=== PATIENT | female | born 1945 | race Caucasian/White ===

== ENCOUNTER 2016-10-26 13:43 | Inpatient (IN) | payer OTHER ==
[~2016-10-26] VITALS: Ht 154.9 cm; Wt 51.0 kg
[~2016-10-26 13:43] MED LIST: AMARYL1 MG PO; AMARYL2 MG PO; ASPIRIN81 M2 PO; LASIX20 MG PO; LEVAQUIN500 MG PO; LIPITOR40 MG PO; LYRICA75 MG PO; MOBIC15 MG PO; MOBIC7.5 MG PO; MYSOLINE50 MG PO; OMEGA-31000 M1 PO; PLAVIX75 MG PO; PREDNISONE10 MG PO; PROVENTIL HFA6.7 GM IH; VICTOZA 2-0.6 MG/0.1 SC; ZESTRIL2.5 MG PO; ZOLOFT100 MG PO; ZOLOFT50 MG PO
[2016-10-26 14:54] LABS: ADD MIUA? YES; BILIRUBIN NEGATIVE; BLOOD NEGATIVE; GLUCOSE (STRIP) NEGATIVE; KETONES 5; LEUKOCYTES NEGATIVE; NITRITE NEGATIVE; PROTEIN (STRIP) NEGATIVE; SPECIFIC GRAVITY 1.018 (1.000-1.030)
[2016-10-26 14:57] LABS: HEMATOCRIT 34.6 % (36.0-46.0); MCH 27.5 PG (29.0-34.0); MCHC 32.4 G/DL (30.0-36.0); MEAN PLAT.VOLUME 12.3 uM^3 (9.5-12.4); PLATELET COUNT 160 K/uL (156-360); RBC DIS.WIDTH-CV 16.5 % (11.8-14.6); RED BLOOD COUNT 4.07 M/uL (3.80-5.20); WHITE BLOOD COUNT 7.5 K/uL (4.1-10.2)
[2016-10-26 14:59] LABS: BASOPHIL COUNT 0.1 K/uL (0-0.1); EOSINOPHIL (%) 0.8 % (0-5); EOSINOPHIL COUNT 0.1 K/uL (0-0.3); IMMATURE GRANULOCYTE (%) 0.3 % (0.0-0.7); IMMATURE GRANULOCYTE COUNT 0.2 K/uL; LYMPHOCYTE COUNT 1.3 K/uL (1.0-2.8); MONOCYTE (%) 10.3 % (3-12); MONOCYTE COUNT 0.8 K/uL (0-0.8); NEUTROPHIL (%) 71.1 % (45-76); NEUTROPHIL COUNT 5.3 K/uL (1.8-6.4)
[2016-10-26 15:03] LABS: BACTERIA NONE SEEN /HPF; COLOR DK YELLOW ((YELLOW)); CRYSTALS PRESENT; EPITHELIAL CELLS RARE /HPF; MUCUS TRACE /LPF; RED BLOOD CELLS 0-5 /HPF (0-5); UCUL ADDED? NO; WHITE BLOOD CELLS 0-5 /HPF (0-5)
[2016-10-26 15:04] LABS: HYALINE CASTS 20-30 /LPF
[2016-10-26 15:16] LABS: CHLORIDE 110 mEq/L (99-109); POTASSIUM 4.5 mEq/L (3.7-5.4); SODIUM 142 mEq/L (136-147)
[2016-10-26 15:19] LABS: GLUCOSE 126 mg/dL (70-99)
[2016-10-26 15:20] LABS: ANION GAP 13 MEQ/L (2-14)
[2016-10-26 15:21] LABS: TOTAL BILIRUBIN 1.1 mg/dL (0.0-1.0)
[2016-10-26 15:22] LABS: ALKALINE PHOSPHATASE 128 IU/L (3-129); GFR ESTIMATE (CALCULATED) 36 mL/min/; TROP-I INTERPRETATION NEGATIVE; TROPONIN-I 0.06 ng/mL (0.0-0.30)
[2016-10-26 15:23] LABS: UREA NITROGEN (BUN) 32 mg/dL (9-23)
[2016-10-26 18:39] VITALS: BP 152/68
[2016-10-26 19:20] VITALS: BP 165/73
[2016-10-26] MEDS ORDERED: LISINOPRIL2.5 MG PO (21:40)
[2016-10-26] MEDS ORDERED: CLOPIDOGREL75 MG PO (21:41)
[2016-10-26] MEDS ORDERED: LASIX20 MG PO (21:41)
[2016-10-26] MEDS ORDERED: ZOLOFT100 MG PO (21:42)
[2016-10-26] MEDS ORDERED: LYRICA75 MG PO (21:42)
[2016-10-26] MEDS ORDERED: LIPITOR40 MG PO (21:43)
[2016-10-26] MEDS ORDERED: MYSOLINE50 MG PO (21:43)
[2016-10-26] MEDS ORDERED: OMEGA 3-6-9 CO1 EACH PO (21:44)
[2016-10-26] MEDS ORDERED: VICTOZA 2-0.6 MG/0.1 SC (21:45)
[2016-10-26] MEDS ORDERED: TRAMADOL HCL50 MG PO (21:46)
[2016-10-26] MEDS ORDERED: ASPIR 8181 M1 PO (21:46)
[2016-10-26 22:14] VITALS: BP 150/76
[2016-10-26 23:08] VITALS: BP 150/72
[2016-10-27 03:04] VITALS: BP 149/67
[2016-10-27 06:21] LABS: EOSINOPHIL (%) 0 % (0-5); HEMATOCRIT 32.9 % (36.0-46.0); IMMATURE GRANULOCYTE (%) 0.3 % (0.0-0.7); LYMPHOCYTE COUNT 0.6 K/uL (1.0-2.8); MCH 27.2 PG (29.0-34.0); MCHC 32.2 G/DL (30.0-36.0); MCV 84.6 FL (83-99); MEAN PLAT.VOLUME 12.8 uM^3 (9.5-12.4); MONOCYTE COUNT 0.3 K/uL (0-0.8); NEUTROPHIL (%) 78.5 % (45-76); NEUTROPHIL COUNT 3.1 K/uL (1.8-6.4); PLATELET COUNT 153 K/uL (156-360); RBC DIS.WIDTH-CV 16.6 % (11.8-14.6); RBC DIS.WIDTH-SD 50.4 % (39-53); RED BLOOD COUNT 3.89 M/uL (3.80-5.20)
[2016-10-27 06:22] LABS: WHITE BLOOD COUNT 3.9 K/uL (4.1-10.2)
[2016-10-27 06:29] LABS: ANION GAP 11 MEQ/L (2-14); CHLORIDE 108 MEQ/L (99-109); GFR ESTIMATE (CALCULATED) 39 mL/min/; GLUCOSE 184 mg/dL (70-99); POTASSIUM 4.4 MEQ/L (3.7-5.4); SAMPLE HEMOLYSIS CHECK 0; SAMPLE ICTERIC CHECK 0; SAMPLE LIPEMIA CHECK 0; SODIUM 137 MEQ/L (136-147); UREA NITROGEN (BUN) 37 mg/dL (9-23)
[2016-10-27 07:57] VITALS: BP 115/58
[2016-10-27 11:52] VITALS: BP 118/60
[2016-10-27 16:15] VITALS: BP 140/59
[2016-10-27 20:25] VITALS: BP 124/69
[2016-10-28 00:14] VITALS: BP 153/64
[2016-10-28 04:40] VITALS: BP 128/61
[2016-10-28 07:37] VITALS: BP 128/101
[2016-10-28 12:00] VITALS: BP 117/56
[2016-10-28 15:37] VITALS: BP 104/53
[2016-10-28 20:00] VITALS: BP 140/65
[2016-10-29] VITALS (7 sets, daily range): BP systolic 117–159; BP diastolic 55–75
[2016-10-29 06:50] LABS: EOSINOPHIL (%) 0 % (0-5); HEMATOCRIT 31.8 % (36.0-46.0); IMMATURE GRANULOCYTE (%) 0.1 % (0.0-0.7); LYMPHOCYTE COUNT 0.4 K/uL (1.0-2.8); MCH 27.3 PG (29.0-34.0); MCHC 32.7 G/DL (30.0-36.0); MCV 83.5 FL (83-99); MONOCYTE (%) 4.2 % (3-12); MONOCYTE COUNT 0.4 K/uL (0-0.8); NEUTROPHIL (%) 90.4 % (45-76); NEUTROPHIL COUNT 7.5 K/uL (1.8-6.4); RBC DIS.WIDTH-CV 16.8 % (11.8-14.6); RBC DIS.WIDTH-SD 50.4 % (39-53); RED BLOOD COUNT 3.81 M/uL (3.80-5.20)
[2016-10-29 06:55] LABS: WHITE BLOOD COUNT 8.3 K/uL (4.1-10.2)
[2016-10-29 07:01] LABS: ANION GAP 9 MEQ/L (2-14); CHLORIDE 107 MEQ/L (99-109); GFR ESTIMATE (CALCULATED) 39 mL/min/; SAMPLE HEMOLYSIS CHECK 0; SAMPLE ICTERIC CHECK 0; SAMPLE LIPEMIA CHECK 0; SODIUM 134 MEQ/L (136-147); UREA NITROGEN (BUN) 45 mg/dL (9-23)
[2016-10-29 07:04] LABS: GLUCOSE 301 mg/dL (70-99)
[2016-10-29 07:49] LABS: MEAN PLAT.VOLUME 11.8 uM^3 (9.5-12.4); PLAT.SUFFICIENCY DECREASED; USER ID TLW
[2016-10-29 07:57] LABS: PLATELET COUNT 103 K/uL (156-360)
[2016-10-29 12:38] LABS: POINT-OF-CARE METER ID UU14149396; POINT-OF-CARE USER ID 606021404
[2016-10-29 17:54] LABS: POINT-OF-CARE METER ID UU14149396; POINT-OF-CARE USER ID 606021404
[2016-10-29 21:33] LABS: POINT-OF-CARE METER ID UU14149396
[2016-10-30] VITALS (8 sets, daily range): BP systolic 107–157; BP diastolic 53–74
[2016-10-30 07:40] LABS: ANION GAP 8 MEQ/L (2-14); CHLORIDE 108 MEQ/L (99-109); GFR ESTIMATE (CALCULATED) 58 mL/min/; GLUCOSE 232 mg/dL (70-99); SAMPLE HEMOLYSIS CHECK 0; SAMPLE ICTERIC CHECK 0; SAMPLE LIPEMIA CHECK 0; SODIUM 136 MEQ/L (136-147); UREA NITROGEN (BUN) 37 mg/dL (9-23)
[2016-10-30 08:50] LABS: EOSINOPHIL (%) 0 % (0-5); HEMATOCRIT 34.4 % (36.0-46.0); IMMATURE GRANULOCYTE (%) 0.2 % (0.0-0.7); LYMPHOCYTE COUNT 0.6 K/uL (1.0-2.8); MCH 27.3 PG (29.0-34.0); MCHC 32.6 G/DL (30.0-36.0); MCV 83.7 FL (83-99); MONOCYTE (%) 5.5 % (3-12); MONOCYTE COUNT 0.5 K/uL (0-0.8); NEUTROPHIL (%) 87.6 % (45-76); NEUTROPHIL COUNT 7.7 K/uL (1.8-6.4); PLATELET COUNT 101 K/uL (156-360); RBC DIS.WIDTH-SD 51.2 % (39-53); RED BLOOD COUNT 4.11 M/uL (3.80-5.20); WHITE BLOOD COUNT 8.8 K/uL (4.1-10.2)
[2016-10-30 09:06] LABS: POINT-OF-CARE METER ID UU14149396
[2016-10-30] MEDS ORDERED: VENTOLIN HFA18 GM IH (11:35)
[2016-10-30 12:30] LABS: POINT-OF-CARE METER ID UU14149396
[2016-10-30 16:54] LABS: POINT-OF-CARE METER ID UU14149396
[2016-10-30 22:21] LABS: POINT-OF-CARE METER ID UU14149396; POINT-OF-CARE USER ID 608261316
[2016-10-31 03:35] VITALS: BP 132/66
[2016-10-31 07:59] VITALS: BP 120/56
[2016-10-31 08:37] LABS: POINT-OF-CARE METER ID UU13113807
[2016-10-31 12:11] VITALS: BP 118/56
[2016-10-31 12:59] LABS: POINT-OF-CARE METER ID UU13113807
[2016-10-31 16:40] VITALS: BP 132/67
[2016-10-31 17:36] LABS: POINT-OF-CARE METER ID UU13113807
[2016-10-31 20:00] VITALS: BP 136/58
[2016-10-31 21:26] LABS: POINT-OF-CARE METER ID UU13113807
[2016-10-31 23:51] VITALS: BP 121/56
[2016-11-01 07:00] VITALS: BP 149/64
[2016-11-01 07:33] LABS: ANION GAP 7 MEQ/L (2-14); CHLORIDE 106 MEQ/L (99-109); GFR ESTIMATE (CALCULATED) 58 mL/min/; GLUCOSE 116 mg/dL (70-99); POTASSIUM 4.8 MEQ/L (3.7-5.4); SAMPLE HEMOLYSIS CHECK 0; SAMPLE ICTERIC CHECK 0; SAMPLE LIPEMIA CHECK 0; SODIUM 135 MEQ/L (136-147); UREA NITROGEN (BUN) 33 mg/dL (9-23)
[2016-11-01 07:36] LABS: EOSINOPHIL (%) 1.3 % (0-5); EOSINOPHIL COUNT 0.2 K/uL (0-0.3); HEMATOCRIT 32.7 % (36.0-46.0); IMMATURE GRANULOCYTE (%) 0.2 % (0.0-0.7); LYMPHOCYTE COUNT 1.5 K/uL (1.0-2.8); MCH 27.2 PG (29.0-34.0); MCHC 32.4 G/DL (30.0-36.0); MCV 84.1 FL (83-99); MONOCYTE (%) 8.6 % (3-12); NEUTROPHIL (%) 76.6 % (45-76); NEUTROPHIL COUNT 8.8 K/uL (1.8-6.4); RBC DIS.WIDTH-CV 17.2 % (11.8-14.6); RBC DIS.WIDTH-SD 51.9 % (39-53); RED BLOOD COUNT 3.89 M/uL (3.80-5.20)
[2016-11-01 07:42] LABS: POINT-OF-CARE METER ID UU14149398
[2016-11-01 07:55] LABS: WHITE BLOOD COUNT 11.5 K/uL (4.1-10.2)
[2016-11-01 08:34] LABS: MEAN PLAT.VOLUME 12.5 uM^3 (9.5-12.4); PLAT.SUFFICIENCY DECREASED; PLATELET COUNT 96 K/uL (156-360); USER ID TLW
[2016-11-01 11:02] VITALS: BP 116/58
[2016-11-01 11:10] LABS: POINT-OF-CARE METER ID UU14149398
[2016-11-01 15:06] LABS: POINT-OF-CARE METER ID UU14149398
[2016-11-01 15:58] VITALS: BP 131/60
[2016-11-01 17:03] LABS: POINT-OF-CARE METER ID UU14149398
[2016-11-01 19:29] VITALS: BP 125/72
[2016-11-01 21:18] LABS: POINT-OF-CARE METER ID UU14149398
[2016-11-01 23:42] VITALS: BP 125/61
[2016-11-02 03:34] VITALS: BP 153/68
[2016-11-02 07:46] VITALS: BP 139/64
[2016-11-02 07:55] LABS: POINT-OF-CARE METER ID UU14149398
[2016-11-02 10:46] VITALS: BP 128/56
[2016-11-02 10:57] LABS: POINT-OF-CARE METER ID UU14149398
[2016-11-02] MEDS ORDERED: DUONEB 2.5-0.5 M3 ML AEROSOL (12:11)
[2016-11-02] MEDS ORDERED: LOVENOX40 MG/0.4 SC (12:11)
[2016-11-02] MEDS ORDERED: TYLENOL REGULA325 MG PO (12:12)
[2016-11-02] MEDS ORDERED: CEFTIN500 MG PO (12:13)
[2016-11-02] MEDS ORDERED: TRAMADOL HCL50 MG PO (12:15)
[2016-11-02] MEDS ORDERED: LYRICA75 MG PO (12:15)
[2016-11-02] MEDS ORDERED: PREDNISONE10 MG PO (12:17)
[2016-11-02 16:15] LABS: POINT-OF-CARE METER ID UU14149398
== END 2016-11-02 16:19 | DRG 190 ==
LOC: EME 13:43 → EDOF 15:36 → 4SOUTH 15:36
PROVIDERS: Emergency Medicine; Family Medicine
DX: J44.1 Chronic obstructive pulmonary disease with (acute) exacerbation (principal); J18.9 Pneumonia, unspecified organism; F05 Delirium due to known physiological condition; F33.9 Major depressive disorder, recurrent, unspecified; N28.9 Disorder of kidney and ureter, unspecified; Z91.81 History of falling; I50.9 Heart failure, unspecified; I25.10 Atherosclerotic heart disease of native coronary artery without angina pectoris; E78.5 Hyperlipidemia, unspecified; E11.40 Type 2 diabetes mellitus with diabetic neuropathy, unspecified; Z95.5 Presence of coronary angioplasty implant and graft; Z86.73 Personal history of transient ischemic attack (TIA), and cerebral infarction without residual deficits; F17.210 Nicotine dependence, cigarettes, uncomplicated; Z88.0 Allergy status to penicillin; Z91.040 Latex allergy status; M62.81 Muscle weakness (generalized); F41.9 Anxiety disorder, unspecified; I10 Essential (primary) hypertension; R09.02 Hypoxemia; D64.9 Anemia, unspecified; D69.6 Thrombocytopenia, unspecified
CPT/HCPCS: 70450; 71010; 80048; 80053; 81003; 82948; 83605; 84484; 85025; 87040; 93005; 94640; 94640 76; 94760; 94799; 97530 GO; 97530 GP; 99202; 99281; 99285; J0456; J0696; J1100; J1650; J1815; J2930; J7030; J7050; J7512

== ENCOUNTER 2016-11-21 01:50 | Inpatient (IN) | payer OTHER ==
[~2016-11-21] VITALS: Ht 154.9 cm; Wt 60.1 kg
[~2016-11-21 01:50] MED LIST changes: +ASPIR 8181 M1 PO; +CEFTIN500 MG PO; +CLOPIDOGREL75 MG PO; +DUONEB 2.5-0.5 M3 ML AEROSOL; +LISINOPRIL2.5 MG PO; +LOVENOX40 MG/0.4 SC; +OMEGA 3-6-9 CO1 EACH PO; +TRAMADOL HCL50 MG PO; +TYLENOL REGULA325 MG PO; +VENTOLIN HFA18 GM IH
[2016-11-21 03:12] LABS: CHLORIDE 108 mEq/L (99-109); POTASSIUM 3.9 mEq/L (3.7-5.4); SODIUM 147 mEq/L (136-147)
[2016-11-21 03:15] LABS: GLUCOSE 149 mg/dL (70-99); INTER. NORMALIZED RATIO 1.4; PROTHROMBIN TIME 14.9 (9.2-11.2); PTT 29.4 (25-32)
[2016-11-21 03:16] LABS: ANION GAP 11 MEQ/L (2-14)
[2016-11-21 03:17] LABS: TOTAL BILIRUBIN 0.8 mg/dL (0.0-1.0)
[2016-11-21 03:18] LABS: ALKALINE PHOSPHATASE 95 IU/L (3-129); GFR ESTIMATE (CALCULATED) 52 mL/min/
[2016-11-21 03:19] LABS: UREA NITROGEN (BUN) 29 mg/dL (9-23)
[2016-11-21 03:21] LABS: WHITE BLOOD COUNT 7.4 K/uL (4.1-10.2)
[2016-11-21 03:22] LABS: HEMATOCRIT 27.5 % (36.0-46.0); LIPASE 9 U/L (1.0-51.0); MCH 26.4 PG (29.0-34.0); MCHC 30.9 G/DL (30.0-36.0); MCV 85.4 FL (83-99); RBC DIS.WIDTH-CV 18.2 % (11.8-14.6); RED BLOOD COUNT 3.22 M/uL (3.80-5.20); TROP-I INTERPRETATION NEGATIVE; TROPONIN-I 0.18 ng/mL (0.0-0.30)
[2016-11-21 03:35] LABS: ADD MIUA? YES; BILIRUBIN NEGATIVE; BLOOD NEGATIVE; COLOR YELLOW ((YELLOW)); GLUCOSE (STRIP) NEGATIVE; KETONES NEGATIVE; LEUKOCYTES NEGATIVE; NITRITE NEGATIVE; PROTEIN (STRIP) NEGATIVE; SPECIFIC GRAVITY 1.014 (1.000-1.030); UROBILINOGEN 0.2 MG/DL (0.2-1.0)
[2016-11-21 03:49] LABS: RBC DIS.WIDTH-SD 54.6 % (39-53)
[2016-11-21 03:51] LABS: BACTERIA NONE SEEN /HPF; EPITHELIAL CELLS 1+ /HPF; MUCUS TRACE /LPF; RED BLOOD CELLS NONE SEEN /HPF (0-5); UCUL ADDED? NO; WHITE BLOOD CELLS 0-5 /HPF (0-5)
[2016-11-21 04:39] LABS: MEAN PLAT.VOLUME 13.1 uM^3 (9.5-12.4); PLATELET COUNT 104 K/uL (156-360)
[2016-11-21] MEDS ORDERED: LASIX40 MG PO (06:59)
[2016-11-21] MEDS ORDERED: FERROUS SULFAT325 MG PO (07:02)
[2016-11-21] MEDS ORDERED: TYLENOL ARTHRI650 MG PO (07:04)
[2016-11-21 11:34] VITALS: BP 125/58
[2016-11-21 15:22] LABS: IRON 29 MCG/DL (35-150)
[2016-11-21 15:27] LABS: HEMATOCRIT 30.8 % (36.0-46.0); MCH 25.9 PG (29.0-34.0); MCHC 29.9 G/DL (30.0-36.0); MCV 86.8 FL (83-99); PLATELET COUNT 104 K/uL (156-360); RBC DIS.WIDTH-CV 18.4 % (11.8-14.6); RBC DIS.WIDTH-SD 58.3 % (39-53); RED BLOOD COUNT 3.55 M/uL (3.80-5.20); WHITE BLOOD COUNT 8.4 K/uL (4.1-10.2)
[2016-11-21 16:00] LABS: FERRITIN 48 NG/ML (10-291)
[2016-11-21 16:25] VITALS: BP 132/61
[2016-11-21 18:41] VITALS: BP 97/58
[2016-11-21 22:18] VITALS: BP 103/53
[2016-11-22] VITALS (16 sets, daily range): BP systolic 103–129; BP diastolic 32–65
[2016-11-22 03:25] LABS: HEMATOCRIT 26.9 % (36.0-46.0); MCH 25.8 PG (29.0-34.0); MCHC 30.1 G/DL (30.0-36.0); MCV 85.7 FL (83-99); PLATELET COUNT 87 K/uL (156-360); RBC DIS.WIDTH-CV 18.5 % (11.8-14.6); RBC DIS.WIDTH-SD 57.4 % (39-53); RED BLOOD COUNT 3.14 M/uL (3.80-5.20); WHITE BLOOD COUNT 7.8 K/uL (4.1-10.2)
[2016-11-22 07:09] LABS: HEMATOCRIT 25.6 % (36.0-46.0); MCH 25.8 PG (29.0-34.0); MCHC 30.1 G/DL (30.0-36.0); MCV 85.9 FL (83-99); MEAN PLAT.VOLUME 13.6 uM^3 (9.5-12.4); PLATELET COUNT 93 K/uL (156-360); RBC DIS.WIDTH-CV 18.3 % (11.8-14.6); RBC DIS.WIDTH-SD 56.9 % (39-53); RED BLOOD COUNT 2.98 M/uL (3.80-5.20); WHITE BLOOD COUNT 6.3 K/uL (4.1-10.2)
[2016-11-22 07:32] LABS: ALKALINE PHOSPHATASE 73 IU/L (3-129); ANION GAP 6 MEQ/L (2-14); CHLORIDE 112 MEQ/L (99-109); GFR ESTIMATE (CALCULATED) 52 mL/min/; GLUCOSE 179 mg/dL (70-99); POTASSIUM 3.5 MEQ/L (3.7-5.4); SAMPLE HEMOLYSIS CHECK 0; SAMPLE ICTERIC CHECK 0; SAMPLE LIPEMIA CHECK 0; SODIUM 145 MEQ/L (136-147); TOTAL BILIRUBIN 0.8 MG/DL (0.0-1.0); UREA NITROGEN (BUN) 27 mg/dL (9-23)
[2016-11-22 10:48] LABS: TYPE OF FLUID PLEURAL
[2016-11-22 11:43] LABS: BODY FLUID PROTEIN < 3.0 G/DL
[2016-11-22 12:26] LABS: BODY FLUID RBC'S 331 /MM^3 (0-100); BODY FLUID WBC'S 128 /MM^3 (0-500); RED CELL DILUTION 1; WBC DILUTION 1; WHITE CELL RAW COUNT 230
[2016-11-22 12:52] LABS: BODY FLUID EOSINOPHILS 0 % (0-25); MONO RAW COUNT 23; MONONUCLEAR WBC'S 23 %; POLY RAW COUNT 77; POLYNUCLEAR WBC'S 77 % (0-25)
[2016-11-22 17:03] LABS: HEMATOCRIT 34.7 % (36.0-46.0); MCH 25.9 PG (29.0-34.0); MCV 86.5 FL (83-99); MEAN PLAT.VOLUME 12.7 uM^3 (9.5-12.4); PLATELET COUNT 93 K/uL (156-360); RBC DIS.WIDTH-SD 55.5 % (39-53)
[2016-11-22 17:19] LABS: RED BLOOD COUNT 4.01 M/uL (3.80-5.20); WHITE BLOOD COUNT 11.3 K/uL (4.1-10.2)
[2016-11-23 02:50] VITALS: BP 106/52
[2016-11-23 03:14] LABS: HEMATOCRIT 29.8 % (36.0-46.0); MCH 26.1 PG (29.0-34.0); MCHC 30.9 G/DL (30.0-36.0); MCV 84.4 FL (83-99); PLATELET COUNT 75 K/uL (156-360); RBC DIS.WIDTH-CV 18.6 % (11.8-14.6); RBC DIS.WIDTH-SD 55.2 % (39-53); RED BLOOD COUNT 3.53 M/uL (3.80-5.20)
[2016-11-23 03:15] LABS: WHITE BLOOD COUNT 6.2 K/uL (4.1-10.2)
[2016-11-23 07:40] LABS: HEMATOCRIT 29.4 % (36.0-46.0); MCH 25.8 PG (29.0-34.0); MCHC 29.3 G/DL (30.0-36.0); MCV 88.3 FL (83-99); RBC DIS.WIDTH-CV 18.9 % (11.8-14.6); RBC DIS.WIDTH-SD 59.8 % (39-53); RED BLOOD COUNT 3.33 M/uL (3.80-5.20); WHITE BLOOD COUNT 5.8 K/uL (4.1-10.2)
[2016-11-23 07:43] VITALS: BP 123/60
[2016-11-23 07:53] LABS: ALKALINE PHOSPHATASE 67 IU/L (3-129); CHLORIDE 112 MEQ/L (99-109); GFR ESTIMATE (CALCULATED) 58 mL/min/; GLUCOSE 183 mg/dL (70-99); POTASSIUM 3.4 MEQ/L (3.7-5.4); SAMPLE HEMOLYSIS CHECK 0; SAMPLE ICTERIC CHECK 0; SAMPLE LIPEMIA CHECK 0; SODIUM 144 MEQ/L (136-147); TOTAL BILIRUBIN 0.9 MG/DL (0.0-1.0); UREA NITROGEN (BUN) 25 mg/dL (9-23)
[2016-11-23 07:54] LABS: ANION GAP 8 MEQ/L (2-14)
[2016-11-23 11:32] VITALS: BP 146/62
[2016-11-23 15:43] VITALS: BP 126/64
[2016-11-23 19:17] VITALS: BP 125/66
[2016-11-23 22:58] VITALS: BP 113/59
[2016-11-24 03:19] VITALS: BP 118/58
[2016-11-24 07:21] LABS: ALKALINE PHOSPHATASE 70 IU/L (3-129); ANION GAP 7 MEQ/L (2-14); CHLORIDE 110 MEQ/L (99-109); GFR ESTIMATE (CALCULATED) 58 mL/min/; GLUCOSE 142 mg/dL (70-99); POTASSIUM 3.6 MEQ/L (3.7-5.4); SAMPLE HEMOLYSIS CHECK 0; SAMPLE ICTERIC CHECK 0; SAMPLE LIPEMIA CHECK 0; SODIUM 143 MEQ/L (136-147); TOTAL BILIRUBIN 0.9 MG/DL (0.0-1.0); UREA NITROGEN (BUN) 24 mg/dL (9-23)
[2016-11-24 07:47] LABS: HEMATOCRIT 32.2 % (36.0-46.0); MCH 26.1 PG (29.0-34.0); MCHC 30.1 G/DL (30.0-36.0); MCV 86.8 FL (83-99); RBC DIS.WIDTH-CV 18.6 % (11.8-14.6); RBC DIS.WIDTH-SD 57.1 % (39-53); RED BLOOD COUNT 3.71 M/uL (3.80-5.20); WHITE BLOOD COUNT 6.4 K/uL (4.1-10.2)
[2016-11-24 08:53] VITALS: BP 128/61
[2016-11-24 10:20] LABS: EOSINOPHIL (%) 2.2 % (0-5); EOSINOPHIL COUNT 0.1 K/uL (0-0.3); IMMATURE GRANULOCYTE (%) 0.5 % (0.0-0.7); INSTRUMENT ABS NEUTROPHIL CT 4.7 K/uL; LYMPHOCYTE COUNT 0.9 K/uL (1.0-2.8); MONOCYTE (%) 8.6 % (3-12); MONOCYTE COUNT 0.6 K/uL (0-0.8); NEUTROPHIL (%) 73.9 % (45-76); NEUTROPHIL COUNT 4.7 K/uL (1.8-6.4); PLAT.SUFFICIENCY DECREASED
[2016-11-24 16:52] VITALS: BP 142/55
[2016-11-24 20:04] VITALS: BP 131/55
[2016-11-25] VITALS (7 sets, daily range): BP systolic 101–115; BP diastolic 51–62
[2016-11-25 07:18] LABS: HEMATOCRIT 28.1 % (36.0-46.0); MCH 26.2 PG (29.0-34.0); MCHC 30.6 G/DL (30.0-36.0); MCV 85.7 FL (83-99); RBC DIS.WIDTH-CV 18.5 % (11.8-14.6); RBC DIS.WIDTH-SD 56.1 % (39-53); RED BLOOD COUNT 3.28 M/uL (3.80-5.20); WHITE BLOOD COUNT 5.9 K/uL (4.1-10.2)
[2016-11-25 07:27] LABS: ALKALINE PHOSPHATASE 69 IU/L (3-129); ANION GAP 8 MEQ/L (2-14); CHLORIDE 112 MEQ/L (99-109); GFR ESTIMATE (CALCULATED) > 59 mL/min/; GLUCOSE 123 mg/dL (70-99); POTASSIUM 3.6 MEQ/L (3.7-5.4); SAMPLE HEMOLYSIS CHECK 0; SAMPLE ICTERIC CHECK 0; SAMPLE LIPEMIA CHECK 0; SODIUM 144 MEQ/L (136-147); TOTAL BILIRUBIN 0.9 MG/DL (0.0-1.0); UREA NITROGEN (BUN) 22 mg/dL (9-23)
[2016-11-25 09:06] LABS: PLATELET COUNT 59 K/uL (156-360)
[2016-11-26 02:51] VITALS: BP 112/53
[2016-11-26 06:56] VITALS: BP 123/57
[2016-11-26 07:36] LABS: ANION GAP 5 MEQ/L (2-14); CHLORIDE 112 MEQ/L (99-109); GFR ESTIMATE (CALCULATED) > 59 mL/min/; GLUCOSE 111 mg/dL (70-99); POTASSIUM 3.9 MEQ/L (3.7-5.4); SAMPLE HEMOLYSIS CHECK 0; SAMPLE ICTERIC CHECK 0; SAMPLE LIPEMIA CHECK 0; SODIUM 143 MEQ/L (136-147); UREA NITROGEN (BUN) 20 mg/dL (9-23)
[2016-11-26 07:39] LABS: HEMATOCRIT 30.6 % (36.0-46.0); MCH 26.1 PG (29.0-34.0); MCHC 29.7 G/DL (30.0-36.0); MCV 87.7 FL (83-99); MEAN PLAT.VOLUME 13.5 uM^3 (9.5-12.4); PLATELET COUNT 72 K/uL (156-360); RBC DIS.WIDTH-CV 19.3 % (11.8-14.6); RED BLOOD COUNT 3.49 M/uL (3.80-5.20); WHITE BLOOD COUNT 5.9 K/uL (4.1-10.2)
[2016-11-26 08:13] LABS: EOSINOPHIL (%) 1.9 % (0-5); EOSINOPHIL COUNT 0.1 K/uL (0-0.3); IMMATURE GRANULOCYTE (%) 0.2 % (0.0-0.7); INSTRUMENT ABS NEUTROPHIL CT 4.3 K/uL; LYMPHOCYTE COUNT 0.9 K/uL (1.0-2.8); MONOCYTE (%) 8.8 % (3-12); MONOCYTE COUNT 0.5 K/uL (0-0.8); NEUTROPHIL (%) 73.3 % (45-76); NEUTROPHIL COUNT 4.3 K/uL (1.8-6.4)
[2016-11-26 12:32] VITALS: BP 140/50
[2016-11-26 16:39] VITALS: BP 118/56
[2016-11-26 19:38] VITALS: BP 137/62
[2016-11-26 23:01] VITALS: BP 112/58
[2016-11-27 03:11] VITALS: BP 122/63
[2016-11-27 06:47] VITALS: BP 112/56
[2016-11-27 07:04] LABS: EOSINOPHIL (%) 1.1 % (0-5); EOSINOPHIL COUNT 0.1 K/uL (0-0.3); HEMATOCRIT 30.5 % (36.0-46.0); IMMATURE GRANULOCYTE (%) 0.4 % (0.0-0.7); INSTRUMENT ABS NEUTROPHIL CT 5.6 K/uL; LYMPHOCYTE COUNT 0.8 K/uL (1.0-2.8); MCH 26.4 PG (29.0-34.0); MCHC 30.2 G/DL (30.0-36.0); MCV 87.4 FL (83-99); MONOCYTE COUNT 0.6 K/uL (0-0.8); NEUTROPHIL (%) 79.4 % (45-76); NEUTROPHIL COUNT 5.6 K/uL (1.8-6.4); RBC DIS.WIDTH-CV 19.6 % (11.8-14.6); RBC DIS.WIDTH-SD 58.9 % (39-53); RED BLOOD COUNT 3.49 M/uL (3.80-5.20); WHITE BLOOD COUNT 7.1 K/uL (4.1-10.2)
[2016-11-27 07:15] LABS: ANION GAP 8 MEQ/L (2-14); CHLORIDE 112 MEQ/L (99-109); GFR ESTIMATE (CALCULATED) > 59 mL/min/; GLUCOSE 157 mg/dL (70-99); POTASSIUM 4.4 MEQ/L (3.7-5.4); SAMPLE HEMOLYSIS CHECK 0; SAMPLE ICTERIC CHECK 0; SAMPLE LIPEMIA CHECK 0; SODIUM 143 MEQ/L (136-147); UREA NITROGEN (BUN) 20 mg/dL (9-23)
[2016-11-27 07:28] LABS: PLAT.SUFFICIENCY DECREASED; PLATELET COUNT 74 K/uL (156-360)
[2016-11-27 11:55] LABS: POC NON-PRINT COM 1 ND
[2016-11-27 11:58] LABS: POC NON-PRINT COM 1 ND
[2016-11-27 15:38] VITALS: BP 123/58
[2016-11-27 19:03] VITALS: BP 138/63
[2016-11-27 22:52] VITALS: BP 113/70
[2016-11-28 06:52] VITALS: BP 127/69
[2016-11-28 06:52] LABS: ANION GAP 10 MEQ/L (2-14); CHLORIDE 110 MEQ/L (99-109); GFR ESTIMATE (CALCULATED) 58 mL/min/; GLUCOSE 152 mg/dL (70-99); POTASSIUM 4.6 MEQ/L (3.7-5.4); SAMPLE HEMOLYSIS CHECK 0; SAMPLE ICTERIC CHECK 0; SAMPLE LIPEMIA CHECK 0; SODIUM 143 MEQ/L (136-147); UREA NITROGEN (BUN) 20 mg/dL (9-23)
[2016-11-28 08:03] LABS: EOSINOPHIL COUNT 0.1 K/uL (0-0.3); HEMATOCRIT 33.1 % (36.0-46.0); IMMATURE GRANULOCYTE (%) 0.3 % (0.0-0.7); INSTRUMENT ABS NEUTROPHIL CT 5.9 K/uL; LYMPHOCYTE COUNT 1.2 K/uL (1.0-2.8); MCHC 29.3 G/DL (30.0-36.0); MCV 88.7 FL (83-99); MONOCYTE (%) 9.1 % (3-12); MONOCYTE COUNT 0.7 K/uL (0-0.8); NEUTROPHIL (%) 74.2 % (45-76); NEUTROPHIL COUNT 5.9 K/uL (1.8-6.4); RBC DIS.WIDTH-CV 19.8 % (11.8-14.6); RBC DIS.WIDTH-SD 60.7 % (39-53); RED BLOOD COUNT 3.73 M/uL (3.80-5.20); WHITE BLOOD COUNT 7.9 K/uL (4.1-10.2)
[2016-11-28 08:24] LABS: PLATELET COUNT 80 K/uL (156-360)
[2016-11-28 08:31] LABS: PLAT.SUFFICIENCY DECREASED
[2016-11-28 15:12] VITALS: BP 110/51
[2016-11-28 19:02] VITALS: BP 107/51
[2016-11-28 22:15] VITALS: BP 149/63
[2016-11-29 03:00] VITALS: BP 142/61
[2016-11-29 06:22] LABS: BASOPHIL COUNT 0.1 K/uL (0-0.1); EOSINOPHIL (%) 1.8 % (0-5); EOSINOPHIL COUNT 0.1 K/uL (0-0.3); HEMATOCRIT 30.8 % (36.0-46.0); IMMATURE GRANULOCYTE (%) 0.5 % (0.0-0.7); INSTRUMENT ABS NEUTROPHIL CT 4.1 K/uL; LYMPHOCYTE COUNT 1.2 K/uL (1.0-2.8); MCH 26.1 PG (29.0-34.0); MCHC 29.9 G/DL (30.0-36.0); MCV 87.5 FL (83-99); MONOCYTE (%) 10.4 % (3-12); MONOCYTE COUNT 0.6 K/uL (0-0.8); NEUTROPHIL (%) 66.4 % (45-76); NEUTROPHIL COUNT 4.1 K/uL (1.8-6.4); PLATELET COUNT 96 K/uL (156-360); RBC DIS.WIDTH-CV 19.9 % (11.8-14.6); RBC DIS.WIDTH-SD 61.1 % (39-53); RED BLOOD COUNT 3.52 M/uL (3.80-5.20); WHITE BLOOD COUNT 6.2 K/uL (4.1-10.2)
[2016-11-29 06:45] LABS: ANION GAP 6 MEQ/L (2-14); CHLORIDE 110 MEQ/L (99-109); GFR ESTIMATE (CALCULATED) 58 mL/min/; GLUCOSE 128 mg/dL (70-99); POTASSIUM 4.4 MEQ/L (3.7-5.4); SAMPLE HEMOLYSIS CHECK 0; SAMPLE ICTERIC CHECK 0; SAMPLE LIPEMIA CHECK 0; SODIUM 144 MEQ/L (136-147); UREA NITROGEN (BUN) 20 mg/dL (9-23)
[2016-11-29 07:41] VITALS: BP 110/55
[2016-11-29 12:48] LABS: TYPE OF FLUID THORACENTESIS
[2016-11-29 13:37] LABS: BODY FLUID LDH 57 IU/L
[2016-11-29 13:38] LABS: BODY FLUID PROTEIN < 3.0 G/DL
[2016-11-29 14:00] LABS: BODY FLUID RBC'S < 1000 /MM^3 (0-100); BODY FLUID WBC'S 162 /MM^3 (0-500)
[2016-11-29 14:03] LABS: BODY FLUID EOSINOPHILS 0 % (0-25); MONONUCLEAR WBC'S 21 %; POLYNUCLEAR WBC'S 79 % (0-25)
[2016-11-29 16:49] VITALS: BP 120/86
[2016-11-29 19:24] VITALS: BP 100/58
[2016-11-29 23:41] VITALS: BP 111/55
[2016-11-30 03:28] VITALS: BP 112/62
[2016-11-30 07:30] VITALS: BP 116/53
[2016-11-30 07:34] LABS: EOSINOPHIL (%) 1.1 % (0-5); EOSINOPHIL COUNT 0.1 K/uL (0-0.3); HEMATOCRIT 31.9 % (36.0-46.0); IMMATURE GRANULOCYTE (%) 0.5 % (0.0-0.7); MCH 26.2 PG (29.0-34.0); MCHC 30.1 G/DL (30.0-36.0); MCV 87.2 FL (83-99); MONOCYTE COUNT 0.5 K/uL (0-0.8); NEUTROPHIL (%) 75.1 % (45-76); PLATELET COUNT 104 K/uL (156-360); RBC DIS.WIDTH-CV 19.9 % (11.8-14.6); RBC DIS.WIDTH-SD 61.8 % (39-53); RED BLOOD COUNT 3.66 M/uL (3.80-5.20); WHITE BLOOD COUNT 6.6 K/uL (4.1-10.2)
[2016-11-30 07:43] LABS: ANION GAP 6 MEQ/L (2-14); CHLORIDE 110 MEQ/L (99-109); GFR ESTIMATE (CALCULATED) 52 mL/min/; GLUCOSE 137 mg/dL (70-99); POTASSIUM 4.5 MEQ/L (3.7-5.4); SAMPLE HEMOLYSIS CHECK 0; SAMPLE ICTERIC CHECK 0; SAMPLE LIPEMIA CHECK 0; SODIUM 145 MEQ/L (136-147); UREA NITROGEN (BUN) 22 mg/dL (9-23)
[2016-11-30 18:23] VITALS: BP 104/54
[2016-11-30 22:58] VITALS: BP 129/59
[2016-12-01 07:23] LABS: ANION GAP 8 MEQ/L (2-14); CHLORIDE 109 MEQ/L (99-109); GFR ESTIMATE (CALCULATED) 58 mL/min/; GLUCOSE 127 mg/dL (70-99); POTASSIUM 4.2 MEQ/L (3.7-5.4); SAMPLE HEMOLYSIS CHECK 0; SAMPLE ICTERIC CHECK 0; SAMPLE LIPEMIA CHECK 0; SODIUM 145 MEQ/L (136-147); UREA NITROGEN (BUN) 22 mg/dL (9-23)
[2016-12-01 07:40] VITALS: BP 108/64
[2016-12-01 16:41] VITALS: BP 100/51
[2016-12-01 22:34] VITALS: BP 127/54
[2016-12-02 07:32] LABS: ANION GAP 8 MEQ/L (2-14); CHLORIDE 107 MEQ/L (99-109); GFR ESTIMATE (CALCULATED) 52 mL/min/; GLUCOSE 170 mg/dL (70-99); POTASSIUM 4.4 MEQ/L (3.7-5.4); SAMPLE HEMOLYSIS CHECK 0; SAMPLE ICTERIC CHECK 0; SAMPLE LIPEMIA CHECK 0; SODIUM 144 MEQ/L (136-147); UREA NITROGEN (BUN) 24 mg/dL (9-23)
[2016-12-02 07:36] LABS: EOSINOPHIL (%) 0.1 % (0-5); HEMATOCRIT 29.1 % (36.0-46.0); IMMATURE GRANULOCYTE (%) 0.4 % (0.0-0.7); IMMATURE GRANULOCYTE COUNT 0.1 K/uL; MCH 26.3 PG (29.0-34.0); MCHC 30.6 G/DL (30.0-36.0); MCV 86.1 FL (83-99); MONOCYTE (%) 6.4 % (3-12); MONOCYTE COUNT 0.8 K/uL (0-0.8); NEUTROPHIL (%) 84.7 % (45-76); PLATELET COUNT 103 K/uL (156-360); RBC DIS.WIDTH-CV 20.1 % (11.8-14.6); RBC DIS.WIDTH-SD 60.6 % (39-53); RED BLOOD COUNT 3.38 M/uL (3.80-5.20)
[2016-12-02 07:47] LABS: WHITE BLOOD COUNT 11.8 K/uL (4.1-10.2)
[2016-12-02 08:08] VITALS: BP 117/58
[2016-12-02 16:03] VITALS: BP 108/54
[2016-12-02 22:56] VITALS: BP 114/51
[2016-12-03 07:20] VITALS: BP 133/63
[2016-12-03 15:15] VITALS: BP 122/68
[2016-12-03 23:03] VITALS: BP 103/51
[2016-12-04 07:02] LABS: EOSINOPHIL (%) 1.8 % (0-5); EOSINOPHIL COUNT 0.1 K/uL (0-0.3); HEMATOCRIT 29.8 % (36.0-46.0); IMMATURE GRANULOCYTE (%) 0.5 % (0.0-0.7); INSTRUMENT ABS NEUTROPHIL CT 4.7 K/uL; LYMPHOCYTE COUNT 0.9 K/uL (1.0-2.8); MCH 26.4 PG (29.0-34.0); MCHC 30.2 G/DL (30.0-36.0); MCV 87.4 FL (83-99); MEAN PLAT.VOLUME 13.5 uM^3 (9.5-12.4); MONOCYTE COUNT 0.5 K/uL (0-0.8); NEUTROPHIL (%) 75.2 % (45-76); NEUTROPHIL COUNT 4.7 K/uL (1.8-6.4); PLATELET COUNT 111 K/uL (156-360); RBC DIS.WIDTH-CV 20.7 % (11.8-14.6); RBC DIS.WIDTH-SD 64.4 % (39-53); RED BLOOD COUNT 3.41 M/uL (3.80-5.20)
[2016-12-04 07:03] VITALS: BP 124/58
[2016-12-04 07:13] LABS: WHITE BLOOD COUNT 6.2 K/uL (4.1-10.2)
[2016-12-04 07:25] LABS: ANION GAP 8 MEQ/L (2-14); CHLORIDE 106 MEQ/L (99-109); GFR ESTIMATE (CALCULATED) 58 mL/min/; GLUCOSE 150 mg/dL (70-99); SAMPLE HEMOLYSIS CHECK 2; SAMPLE ICTERIC CHECK 0; SAMPLE LIPEMIA CHECK 0; SODIUM 143 MEQ/L (136-147); UREA NITROGEN (BUN) 21 mg/dL (9-23)
[2016-12-04 07:27] LABS: POTASSIUM 4.4 MEQ/L (3.7-5.4)
[2016-12-04] MEDS ORDERED: LEVOFLOXACIN750 MG PO (13:04)
[2016-12-04] MEDS ORDERED: MYCOSTATIN 100,60 ML PO (13:04)
[2016-12-04] MEDS ORDERED: KLOR-CON M1010 MEQ PO (13:05)
[2016-12-04] MEDS ORDERED: TRAMADOL HCL50 MG PO (13:06)
[2016-12-04] MEDS ORDERED: PANTOPRAZOLE SO40 MG PO (13:06)
[2016-12-04] MEDS ORDERED: LYRICA75 MG PO (13:06)
== END 2016-12-04 17:05 | DRG 166 ==
LOC: EME → EDBD 01:50 → EME 01:50 → EDOF 05:36 → 5EAST 05:36
PROVIDERS: Emergency Medicine; Family Medicine; Internal Medicine; Internal Medicine Pulmonary Disease; Radiology Diagnostic Radiology; Specialist
PROC: 0W9B3ZZ Drainage of Left Pleural Cavity, Percutaneous Approach (ICD-10-PCS; principal; 2016-11-22)
PROC: 0JBP0ZZ Excision of Left Lower Leg Subcutaneous Tissue and Fascia, Open Approach (ICD-10-PCS; principal; 2016-11-22)
PROC: 0JBN0ZZ Excision of Right Lower Leg Subcutaneous Tissue and Fascia, Open Approach (ICD-10-PCS; principal; 2016-11-22)
PROC: 0W993ZZ Drainage of Right Pleural Cavity, Percutaneous Approach (ICD-10-PCS; principal; 2016-11-22)
PROC: 0W993ZZ Drainage of Right Pleural Cavity, Percutaneous Approach (ICD-10-PCS; 2016-11-29)
DX: J44.0 Chronic obstructive pulmonary disease with (acute) lower respiratory infection (principal); I50.41 Acute combined systolic (congestive) and diastolic (congestive) heart failure; J18.9 Pneumonia, unspecified organism; J90 Pleural effusion, not elsewhere classified; K92.0 Hematemesis; R18.8 Other ascites; R04.2 Hemoptysis; J98.11 Atelectasis; L97.911 Non-pressure chronic ulcer of unspecified part of right lower leg limited to breakdown of skin; L97.921 Non-pressure chronic ulcer of unspecified part of left lower leg limited to breakdown of skin; F05 Delirium due to known physiological condition; B37.0 Candidal stomatitis; F33.9 Major depressive disorder, recurrent, unspecified; D64.9 Anemia, unspecified; D69.6 Thrombocytopenia, unspecified; I27.2 Other secondary pulmonary hypertension; I10 Essential (primary) hypertension; E11.42 Type 2 diabetes mellitus with diabetic polyneuropathy; E78.5 Hyperlipidemia, unspecified; I25.10 Atherosclerotic heart disease of native coronary artery without angina pectoris; R16.0 Hepatomegaly, not elsewhere classified; K21.9 Gastro-esophageal reflux disease without esophagitis; F17.210 Nicotine dependence, cigarettes, uncomplicated; F03.90 Unspecified dementia, unspecified severity, without behavioral disturbance, psychotic disturbance, mood disturbance, and anxiety; J20.9 Acute bronchitis, unspecified; F41.9 Anxiety disorder, unspecified; R09.02 Hypoxemia; K11.21 Acute sialoadenitis; Z88.0 Allergy status to penicillin; I25.2 Old myocardial infarction; Z91.040 Latex allergy status; Z86.73 Personal history of transient ischemic attack (TIA), and cerebral infarction without residual deficits; Z95.5 Presence of coronary angioplasty implant and graft
CPT/HCPCS: 70450; 70490; 71010; 71020; 71275; 74177; 80048; 80053; 81003; 82272; 82607; 82728; 82746; 82945; 83540; 83605; 83615; 83615 91; 83690; 83880; 84155; 84157; 84439; 84443; 84466; 84484; 85025; 85027; 85610; 85730; 86850; 86900; 86901; 86920; 87040; 87070; 87075; 87077; 87116; 87147; 87186; 87205; 87206; 88108; 89051; 92526 GN; 92610 GN; 93005; 93306; 94640; 94799; 97530 GP; 99202; 99281; 99285; C9113; J0456; J0692; J0696; J1940; J1956; J3370; J7030; J7042; J7050; P9016

== ENCOUNTER 2016-12-18 14:43 | Emergency (ER) | payer OTHER ==
[~2016-12-18] VITALS: Ht 154.9 cm; Wt 59.5 kg
[~2016-12-18 14:43] MED LIST changes: +FERROUS SULFAT325 MG PO; +KLOR-CON M1010 MEQ PO; +LASIX40 MG PO; +LEVOFLOXACIN750 MG PO; +MYCOSTATIN 100,60 ML PO; +PANTOPRAZOLE SO40 MG PO; +TYLENOL ARTHRI650 MG PO
[2016-12-18 15:58] LABS: ADD MIUA? NO; BILIRUBIN NEGATIVE; BLOOD NEGATIVE; COLOR YELLOW ((YELLOW)); GLUCOSE (STRIP) NEGATIVE; KETONES NEGATIVE; LEUKOCYTES NEGATIVE; NITRITE NEGATIVE; PROTEIN (STRIP) NEGATIVE; SPECIFIC GRAVITY 1.008 (1.000-1.030); UCUL ADDED? NO; UROBILINOGEN 0.2 MG/DL (0.2-1.0)
[2016-12-18 16:23] LABS: HEMATOCRIT 25.8 % (36.0-46.0); MCH 26.9 PG (29.0-34.0); MCHC 30.6 G/DL (30.0-36.0); MCV 87.8 FL (83-99); MEAN PLAT.VOLUME 12.3 uM^3 (9.5-12.4); PLATELET COUNT 111 K/uL (156-360); RBC DIS.WIDTH-CV 21.6 % (11.8-14.6); RBC DIS.WIDTH-SD 67.8 % (39-53); RED BLOOD COUNT 2.94 M/uL (3.80-5.20); WHITE BLOOD COUNT 4.4 K/uL (4.1-10.2)
[2016-12-18 16:33] LABS: CHLORIDE 107 mEq/L (99-109); POTASSIUM 3.9 mEq/L (3.7-5.4); SODIUM 141 mEq/L (136-147)
[2016-12-18 16:35] LABS: GLUCOSE 112 mg/dL (70-99)
[2016-12-18 16:37] LABS: ANION GAP 7 MEQ/L (2-14)
[2016-12-18 16:39] LABS: GFR ESTIMATE (CALCULATED) 47 mL/min/
[2016-12-18 16:40] LABS: UREA NITROGEN (BUN) 27 mg/dL (9-23)
[2016-12-18 16:48] LABS: INTER. NORMALIZED RATIO 1.3; PROTHROMBIN TIME 13.6 (9.2-11.2); PTT 28.3 (25-32)
[2016-12-18 18:03] VITALS: BP 126/56
== END 2016-12-18 18:04 ==
LOC: EME → EDBD 14:43 → EME 18:04
PROVIDERS: Emergency Medicine
DX: D64.9 Anemia, unspecified (principal); R41.0 Disorientation, unspecified; W05.0XXA Fall from non-moving wheelchair, initial encounter; Y92.129 Unspecified place in nursing home as the place of occurrence of the external cause; I11.0 Hypertensive heart disease with heart failure; I50.9 Heart failure, unspecified; E11.9 Type 2 diabetes mellitus without complications; J44.9 Chronic obstructive pulmonary disease, unspecified; E78.5 Hyperlipidemia, unspecified; I25.2 Old myocardial infarction; K21.9 Gastro-esophageal reflux disease without esophagitis; Z86.73 Personal history of transient ischemic attack (TIA), and cerebral infarction without residual deficits; I73.9 Peripheral vascular disease, unspecified; Z95.1 Presence of aortocoronary bypass graft; Z79.82 Long term (current) use of aspirin; Z87.891 Personal history of nicotine dependence
CPT/HCPCS: 70450; 80048; 81003; 85027; 85610; 85730; 99281; 99283

== ENCOUNTER 2016-12-24 12:15 | Inpatient (IN) | payer OTHER ==
[~2016-12-24] VITALS: Ht 157.5 cm; Wt 54.7 kg
[2016-12-24 13:10] LABS: POINT-OF-CARE METER ID UU13113702
[2016-12-24 13:26] LABS: ADD MIUA? YES; BILIRUBIN NEGATIVE; BLOOD NEGATIVE; COLOR AMBER ((YELLOW)); GLUCOSE (STRIP) NEGATIVE; KETONES NEGATIVE; LEUKOCYTES TRACE; NITRITE NEGATIVE; PROTEIN (STRIP) NEGATIVE; SPECIFIC GRAVITY 1.016 (1.000-1.030)
[2016-12-24 13:34] LABS: EOSINOPHIL (%) 0.1 % (0-5); HEMATOCRIT 30.3 % (36.0-46.0); IMMATURE GRANULOCYTE (%) 0.5 % (0.0-0.7); INSTRUMENT ABS NEUTROPHIL CT 6.5 K/uL; LYMPHOCYTE COUNT 0.9 K/uL (1.0-2.8); MCH 27.4 PG (29.0-34.0); MCHC 30.7 G/DL (30.0-36.0); MCV 89.4 FL (83-99); MONOCYTE (%) 8.5 % (3-12); MONOCYTE COUNT 0.7 K/uL (0-0.8); NEUTROPHIL (%) 79.3 % (45-76); NEUTROPHIL COUNT 6.5 K/uL (1.8-6.4); RBC DIS.WIDTH-CV 22.9 % (11.8-14.6); RBC DIS.WIDTH-SD 74.2 % (39-53); RED BLOOD COUNT 3.39 M/uL (3.80-5.20)
[2016-12-24 13:35] LABS: WHITE BLOOD COUNT 8.2 K/uL (4.1-10.2)
[2016-12-24 13:39] LABS: CHLORIDE 110 mEq/L (99-109); POTASSIUM 4.2 mEq/L (3.7-5.4); SODIUM 145 mEq/L (136-147)
[2016-12-24 13:39] LABS: BACTERIA NONE SEEN /HPF; EPITHELIAL CELLS RARE /HPF; MUCUS TRACE /LPF; RED BLOOD CELLS 0-5 /HPF (0-5); UCUL ADDED? NO; WHITE BLOOD CELLS 0-5 /HPF (0-5)
[2016-12-24 13:42] LABS: GLUCOSE 156 mg/dL (70-99)
[2016-12-24 13:43] LABS: ANION GAP 13 MEQ/L (2-14); TOTAL BILIRUBIN 1.8 mg/dL (0.0-1.0)
[2016-12-24 13:45] LABS: ALKALINE PHOSPHATASE 127 IU/L (3-129); GFR ESTIMATE (CALCULATED) 39 mL/min/
[2016-12-24 13:47] LABS: UREA NITROGEN (BUN) 41 mg/dL (9-23)
[2016-12-24] MEDS ORDERED: LEVAQUIN500 MG PO (15:37)
[2016-12-24] MEDS ORDERED: VICTOZA 2-0.6 MG/0.1 SC (15:40)
[2016-12-24] MEDS ORDERED: OMEGA 3-6-9 CO1 EACH PO (15:42)
[2016-12-24] MEDS ORDERED: PROTONIX40 MG PO (15:44)
[2016-12-24] MEDS ORDERED: DUONEB 2.5-0.5 M3 ML AEROSOL (15:47)
[2016-12-24] MEDS ORDERED: FLEET ENEMA-AD118 ML PR (15:48)
[2016-12-24] MEDS ORDERED: GLUCOSE GEL15 GM PO (15:50)
[2016-12-24] MEDS ORDERED: TRAMADOL HCL50 MG PO (16:19)
[2016-12-24 16:22] LABS: PLATELET COUNT 125 K/uL (156-360)
[2016-12-24 17:20] LABS: PLAT.SUFFICIENCY DECREASED
[2016-12-24 21:00] VITALS: BP 125/57
[2016-12-25 00:16] VITALS: BP 136/64
[2016-12-25 03:18] LABS: METH RESISTANT S AUREUS PCR POSITIVE (NEGATIVE)
[2016-12-25 03:25] LABS: PROBE CHECK PASS
[2016-12-25 03:48] VITALS: BP 132/60
[2016-12-25 06:00] LABS: ANION GAP 13 MEQ/L (2-14); CHLORIDE 110 MEQ/L (99-109); GFR ESTIMATE (CALCULATED) 39 mL/min/; GLUCOSE 153 mg/dL (70-99); POTASSIUM 3.9 MEQ/L (3.7-5.4); SAMPLE HEMOLYSIS CHECK 0; SAMPLE ICTERIC CHECK 0; SAMPLE LIPEMIA CHECK 0; SODIUM 146 MEQ/L (136-147); UREA NITROGEN (BUN) 49 mg/dL (9-23)
[2016-12-25 06:34] LABS: HEMATOCRIT 27.9 % (36.0-46.0); MCH 27.6 PG (29.0-34.0); MCHC 30.8 G/DL (30.0-36.0); MCV 89.4 FL (83-99); RBC DIS.WIDTH-CV 22.8 % (11.8-14.6); RED BLOOD COUNT 3.12 M/uL (3.80-5.20); WHITE BLOOD COUNT 7.9 K/uL (4.1-10.2)
[2016-12-25 09:00] VITALS: BP 135/63
[2016-12-25 12:00] VITALS: BP 153/65
[2016-12-25 14:55] LABS: PLAT.SUFFICIENCY DECREASED
[2016-12-25 15:36] LABS: PLATELET COUNT 87 K/uL (156-360)
[2016-12-25 16:50] VITALS: BP 152/67
[2016-12-25 20:00] VITALS: BP 112/52
[2016-12-26] VITALS (7 sets, daily range): BP systolic 122–156; BP diastolic 57–70
[2016-12-26 07:02] LABS: ANION GAP 14 MEQ/L (2-14); CHLORIDE 114 MEQ/L (99-109); GFR ESTIMATE (CALCULATED) 39 mL/min/; GLUCOSE 152 mg/dL (70-99); POTASSIUM 3.7 MEQ/L (3.7-5.4); SAMPLE HEMOLYSIS CHECK 0; SAMPLE ICTERIC CHECK 0; SAMPLE LIPEMIA CHECK 0; SODIUM 151 MEQ/L (136-147); UREA NITROGEN (BUN) 56 mg/dL (9-23)
[2016-12-26 07:29] LABS: EOSINOPHIL (%) 0.4 % (0-5); HEMATOCRIT 32.1 % (36.0-46.0); IMMATURE GRANULOCYTE (%) 0.6 % (0.0-0.7); IMMATURE GRANULOCYTE COUNT 0.1 K/uL; INSTRUMENT ABS NEUTROPHIL CT 6.1 K/uL; LYMPHOCYTE COUNT 1.1 K/uL (1.0-2.8); MCH 27.4 PG (29.0-34.0); MCHC 29.9 G/DL (30.0-36.0); MCV 91.5 FL (83-99); MONOCYTE (%) 8.1 % (3-12); MONOCYTE COUNT 0.6 K/uL (0-0.8); NEUTROPHIL (%) 76.8 % (45-76); NEUTROPHIL COUNT 6.1 K/uL (1.8-6.4); PLATELET COUNT 77 K/uL (156-360); RBC DIS.WIDTH-CV 23.4 % (11.8-14.6); RBC DIS.WIDTH-SD 77.9 % (39-53); RED BLOOD COUNT 3.51 M/uL (3.80-5.20); WHITE BLOOD COUNT 7.9 K/uL (4.1-10.2)
[2016-12-27] VITALS (7 sets, daily range): BP systolic 115–149; BP diastolic 52–67
[2016-12-27 07:16] LABS: ANION GAP 11 MEQ/L (2-14); CHLORIDE 115 MEQ/L (99-109); GFR ESTIMATE (CALCULATED) 39 mL/min/; GLUCOSE 179 mg/dL (70-99); SAMPLE HEMOLYSIS CHECK 0; SAMPLE ICTERIC CHECK 0; SAMPLE LIPEMIA CHECK 0; SODIUM 151 MEQ/L (136-147); UREA NITROGEN (BUN) 54 mg/dL (9-23)
[2016-12-27 07:17] LABS: EOSINOPHIL (%) 0.8 % (0-5); IMMATURE GRANULOCYTE (%) 0.8 % (0.0-0.7); INSTRUMENT ABS NEUTROPHIL CT 3.8 K/uL; LYMPHOCYTE COUNT 0.9 K/uL (1.0-2.8); MCH 27.2 PG (29.0-34.0); MCV 90.6 FL (83-99); MONOCYTE (%) 8.4 % (3-12); MONOCYTE COUNT 0.4 K/uL (0-0.8); NEUTROPHIL (%) 72.8 % (45-76); NEUTROPHIL COUNT 3.8 K/uL (1.8-6.4); RBC DIS.WIDTH-CV 23.4 % (11.8-14.6); RBC DIS.WIDTH-SD 75.7 % (39-53); RED BLOOD COUNT 2.98 M/uL (3.80-5.20)
[2016-12-27 07:19] LABS: WHITE BLOOD COUNT 5.2 K/uL (4.1-10.2)
[2016-12-27 07:55] LABS: PLAT.SUFFICIENCY DECREASED; PLATELET COUNT 62 K/uL (156-360)
[2016-12-28 04:00] VITALS: BP 128/59
[2016-12-28 06:59] LABS: HEMATOCRIT 28.2 % (36.0-46.0); MCH 27.3 PG (29.0-34.0); MCHC 29.8 G/DL (30.0-36.0); MCV 91.6 FL (83-99); RBC DIS.WIDTH-CV 23.6 % (11.8-14.6); RBC DIS.WIDTH-SD 78.3 % (39-53); RED BLOOD COUNT 3.08 M/uL (3.80-5.20); WHITE BLOOD COUNT 5.3 K/uL (4.1-10.2)
[2016-12-28 07:08] LABS: ANION GAP 9 MEQ/L (2-14); CHLORIDE 114 MEQ/L (99-109); GFR ESTIMATE (CALCULATED) 47 mL/min/; GLUCOSE 277 mg/dL (70-99); POTASSIUM 2.8 MEQ/L (3.7-5.4); SAMPLE HEMOLYSIS CHECK 0; SAMPLE ICTERIC CHECK 0; SAMPLE LIPEMIA CHECK 0; SODIUM 148 MEQ/L (136-147); UREA NITROGEN (BUN) 48 mg/dL (9-23)
[2016-12-28 08:25] LABS: ABS NEUTROPHIL COUNT 4.5; ANISOCYTOSIS 2+; BAND NEUTROPHILS 1.7 % (0-8.0); BURR CELLS 3+; EOSINOPHIL ABS CT 0; EOSINOPHILS 0.9 % (0-5.0); INSTRUMENT ABS NEUTROPHIL CT 3.6 K/uL; LYMPHOCYTES 10.4 % (15.0-45.0); MACROCYTES 2+; METAMYELOCYTES 1.7 %; PLAT.SUFFICIENCY DECREASED; PLATELET COUNT 54 K/uL (156-360); POIKILOCYTOSIS 3+; SEG.NEUTROPHILS 83.5 % (46.0-76.0)
[2016-12-28 08:37] VITALS: BP 141/60
[2016-12-28 11:12] VITALS: BP 128/82
[2016-12-28 15:30] VITALS: BP 118/56
[2016-12-28 20:00] VITALS: BP 145/66
[2016-12-28 23:58] VITALS: BP 132/71
[2016-12-29 04:00] VITALS: BP 126/57
[2016-12-29 06:32] LABS: HEMATOCRIT 33.4 % (36.0-46.0); MCH 27.2 PG (29.0-34.0); MCHC 29.3 G/DL (30.0-36.0); MCV 92.8 FL (83-99); PLATELET COUNT 54 K/uL (156-360); RBC DIS.WIDTH-CV 23.7 % (11.8-14.6)
[2016-12-29 07:00] LABS: WHITE BLOOD COUNT 7.6 K/uL (4.1-10.2)
[2016-12-29 07:07] LABS: ANION GAP 9 MEQ/L (2-14); CHLORIDE 115 MEQ/L (99-109); GFR ESTIMATE (CALCULATED) 58 mL/min/; GLUCOSE 277 mg/dL (70-99); SAMPLE HEMOLYSIS CHECK 0; SAMPLE ICTERIC CHECK 0; SAMPLE LIPEMIA CHECK 0; SODIUM 149 MEQ/L (136-147); UREA NITROGEN (BUN) 38 mg/dL (9-23)
[2016-12-29 07:22] LABS: EOSINOPHIL COUNT 0.2 K/uL (0-0.3); IMMATURE GRANULOCYTE (%) 0.5 % (0.0-0.7); INSTRUMENT ABS NEUTROPHIL CT 5.5 K/uL; LYMPHOCYTE COUNT 1.3 K/uL (1.0-2.8); MONOCYTE (%) 7.3 % (3-12); MONOCYTE COUNT 0.6 K/uL (0-0.8); NEUTROPHIL (%) 72.3 % (45-76); NEUTROPHIL COUNT 5.5 K/uL (1.8-6.4)
[2016-12-29 08:33] VITALS: BP 129/60
[2016-12-29 11:09] VITALS: BP 146/69
[2016-12-29 16:49] VITALS: BP 138/58
[2016-12-29 20:29] VITALS: BP 149/67
[2016-12-29 22:33] VITALS: BP 132/60
[2016-12-30 03:17] VITALS: BP 138/69
[2016-12-30 07:41] LABS: ANION GAP 8 MEQ/L (2-14); CHLORIDE 116 MEQ/L (99-109); GFR ESTIMATE (CALCULATED) > 59 mL/min/; GLUCOSE 245 mg/dL (70-99); SAMPLE HEMOLYSIS CHECK 0; SAMPLE ICTERIC CHECK 0; SAMPLE LIPEMIA CHECK 0; SODIUM 149 MEQ/L (136-147); UREA NITROGEN (BUN) 35 mg/dL (9-23)
[2016-12-30 07:43] LABS: POTASSIUM 4.9 MEQ/L (3.7-5.4)
[2016-12-30 08:22] VITALS: BP 140/64
[2016-12-30] MEDS ORDERED: MORPHINE CON20 MG/M1 PO (10:12)
[2016-12-30] MEDS ORDERED: ATIVAN INTE2 MG/1 ML PO (10:12)
[2016-12-30 11:57] VITALS: BP 146/64
[2016-12-30] MEDS ORDERED: HYOSCYAMINE0.125 MG SL (12:18)
== END 2016-12-30 16:12 | disposition hospice, home (50) | DRG 190 ==
LOC: EME 12:15 → 4EAST 16:23 → EDOF 16:23 → 4EAST 20:33
PROVIDERS: Emergency Medicine; Family Medicine
PROC: 0W993ZX Drainage of Right Pleural Cavity, Percutaneous Approach, Diagnostic (ICD-10-PCS; principal; 2016-12-26)
DX: J44.1 Chronic obstructive pulmonary disease with (acute) exacerbation (principal); J18.9 Pneumonia, unspecified organism; I42.0 Dilated cardiomyopathy; J81.1 Chronic pulmonary edema; E86.0 Dehydration; J90 Pleural effusion, not elsewhere classified; R41.82 Altered mental status, unspecified; I34.0 Nonrheumatic mitral (valve) insufficiency; F03.90 Unspecified dementia, unspecified severity, without behavioral disturbance, psychotic disturbance, mood disturbance, and anxiety; D64.9 Anemia, unspecified; Z88.0 Allergy status to penicillin; I50.9 Heart failure, unspecified; I11.0 Hypertensive heart disease with heart failure; Z88.6 Allergy status to analgesic agent; Z91.040 Latex allergy status; Z87.891 Personal history of nicotine dependence; Z86.73 Personal history of transient ischemic attack (TIA), and cerebral infarction without residual deficits; R09.02 Hypoxemia; Z51.5 Encounter for palliative care
CPT/HCPCS: 70450; 71010; 71020; 80048; 80053; 80202; 81003; 82948; 83605; 85025; 85027; 87040; 87641; 92526 GN; 92610 GN; 93005; 94640; 94640 76; 94760; 94799; 97530 GO; 97530 GP; 99202; 99281; 99285; J1940; J2543; J3370; J3480; J7050; J7512